=== PATIENT | male | born 1970 | race Caucasian/White ===

== ENCOUNTER 2017-03-12 18:23 | Inpatient (IN) | payer OTHER ==
[~2017-03-12] VITALS: Ht 180.3 cm; Wt 84.2 kg
[~2017-03-12 18:23] MED LIST: AMOXIL500 MG PO; AUGMENTIN 500 M1 TAB PO; BACTRIM DS 8001 TA1 PO; BACTROBAN CREAM15 GM T; CLINDAMYCIN HC300 MG PO; KEFLEX500 M1 PO; MOTRIN800 MG PO; NEURONTIN100 MG PO; OXYCODONE5 M1 PO; OXYCONTIN10 M1 PO; PERCOCET 325 MG1 TA5 PO; PERCOCET 325 MG1 TA7 PO; TOBREX OPHTH S2.5 ML OPH; VICODIN ES 7501 TA1 PO
[2017-03-12 18:31] VITALS: BP 136/76
[2017-03-12 19:04] LABS: BASO % 0.5 % (0.0-1.0); EOS # 0.1 10*3/uL (0.0-0.4); EOS % 1.5 % (1.0-4.0); HEMATOCRIT 45.9 % (42.0-52.0); HEMOGLOBIN 15.9 g/dl (14.0-18.0); LYMPH # 2.1 10*3/uL (1.3-4.4); LYMPH % 23.7 % (27.0-41.0); MEAN CELL VOLUME 87.3 fl (80.0-94.0); MEAN CORPUSCULAR HGB 30.2 pg (27.0-31.0); MEAN CORPUSCULAR HGB CONC 34.6 g/dl (33.0-37.0); MEAN PLATELET VOLUME 11.3 fl (9.6-12.3); MONO # 0.6 10*3/uL (0.1-1.0); MONO % 6.8 % (3.0-9.0); NEUT # 5.9 10*3/uL (2.3-7.9); NEUT % 67.3 % (47.0-73.0); PLATELET COUNT AUTOMATED 267 10*3/uL (130-400); RED BLOOD COUNT 5.26 10*6/uL (4.50-5.90); RED CELL DISTRI WIDTH 12.1 % (0-14.5); WHITE BLOOD COUNT 8.8 10*3/uL (4.8-10.8)
[2017-03-12 19:15] LABS: PROTHROMBIN TIME 10.9 SECONDS (9.0-12.4)
[2017-03-12 19:19] LABS: ALBUMIN 4.3 gm/dl (3.1-4.5); ALKALINE PHOSPHATASE 156 U/L (45-117); BILIRUBIN, TOTAL 0.5 mg/dl (0.2-1.0); BUN 12 mg/dl (7-24); CARBON DIOXIDE 26 mmol/L (21-32); CHLORIDE 99 mmol/L (98-107); CKMB 0.6 ng/ml (0.5-3.6); CPK 163 U/L (39-308); EST GLOM FILT AFRICAN AMERICAN > 60 ml/min; GLUCOSE 199 mg/dL (65-99); LDH 237 U/L (87-241); POTASSIUM 3.5 mmol/L (3.5-5.1); SGOT/AST 61 IU/L (3-35); SGPT/ALT 126 U/L (12-78); SODIUM 140 mmol/L (136-145); TOTAL PROTEIN 7.4 gm/dL (6.4-8.2)
[2017-03-12 19:20] LABS: TROPONIN I < 0.015 ng/ml (<0.045)
[2017-03-12 20:00] VITALS: BP 131/74
[2017-03-12 22:10] VITALS: BP 131/74
[2017-03-13 07:51] LABS: CKMB 0.5 ng/ml (0.5-3.6); CPK 125 U/L (39-308); TROPONIN I < 0.015 ng/ml (<0.045)
[2017-03-13 08:00] VITALS: BP 130/77
== END 2017-03-13 08:36 | disposition home or self-care (01) | DRG 313 ==
LOC: ED 18:23 → EDHOLD 20:31 → 4E 20:31
PROVIDERS: Internal Medicine; Physician Assistant
DX: R07.9 Chest pain, unspecified (principal); R00.0 Tachycardia, unspecified; Z82.3 Family history of stroke

== ENCOUNTER 2018-03-07 05:53 | Emergency (ER) | payer OTHER ==
[~2018-03-07] VITALS: Ht 180.3 cm; Wt 83.9 kg
[2018-03-07] MEDS ORDERED: Tobrex Ophth S2.5 ML OPH (06:49)
[2018-03-08] MEDS ORDERED: IBUPROFEN600 MG PO (11:19)
== END 2018-03-07 06:51 | disposition home or self-care (01) ==
LOC: ED 05:53
DX: S05.01XA Injury of conjunctiva and corneal abrasion without foreign body, right eye, initial encounter (principal); Z98.890 Other specified postprocedural states; X58.XXXA Exposure to other specified factors, initial encounter; Y93.89 Activity, other specified; Y92.89 Other specified places as the place of occurrence of the external cause; Y99.8 Other external cause status

== ENCOUNTER 2018-03-08 09:38 | Emergency (ER) | payer OTHER ==
[~2018-03-08] VITALS: Ht 180.3 cm; Wt 83.9 kg
[~2018-03-08 09:38] MED LIST changes: +Tobrex Ophth S2.5 ML OPH
[2018-03-08] MEDS ORDERED: IBUPROFEN600 MG PO (11:19)
== END 2018-03-08 11:45 | disposition home or self-care (01) ==
LOC: ED 09:38
DX: S05.01XA Injury of conjunctiva and corneal abrasion without foreign body, right eye, initial encounter (principal); H44.791 Retained (old) intraocular foreign body, nonmagnetic, in other or multiple sites, right eye; H16.131 Photokeratitis, right eye; X58.XXXA Exposure to other specified factors, initial encounter; Y93.89 Activity, other specified; Y92.89 Other specified places as the place of occurrence of the external cause; Y99.8 Other external cause status

== ENCOUNTER → 2021-08-28 | Outpatient (CLI) | payer OTHER ==
[~2021-08-28] MED LIST changes: +IBUPROFEN600 MG PO
== END | disposition home or self-care (01) ==
LOC: COVID19 15:15
PROVIDERS: ATTEND Internal Medicine
DX: Z20.822 Contact with and (suspected) exposure to COVID-19 (principal)